=== PATIENT | male | born 1940 | race African-American/Black ===

== ENCOUNTER 2019-03-10 14:19 | Outpatient (CLI) | payer MEDICARE ==
[~2019-03-10] VITALS: Ht 172.7 cm; Wt 67.3 kg
[2019-03-10 15:43] VITALS: Ht 172.7 cm; Wt 67.3 kg
--- NOTE | 2019-03-10 18:30 | NUR ---
1600 PTS TEMP [address] ALBERT CALL AND ORDERS GIVEN FOR TYLENOL 650MG PO AND BENADRYL 25MG PO 1630 RETIREMENT CALLED FOR REPORT. NO HISTORY OF A TEMP 1800 2ND UNIT OF PRBC STARTED. IV WITHOUT SWELLING OR REDDNESS. LOW GRADE TEMP. PTS DIAPER CHANGED SOAKED WITH URIN. PT COOPERATIVE BUT CONFUSED AT TIMES. PT ON ADMIT HAS SORENESS TO RIGHT ARM HE STATED WAS ARTHRITIS. 1830 RETIREMENT CALLED AND REPORT GIVEN TO NURSE RIVERA. STATED HE USED TO HAVE A CATHETER AND WENT OUT ON A DAY PASS AND CAME BACK WITHOUT ONE.
--- NOTE | 2019-03-10 19:50 | NUR ---
1929 [facility] CALLED TO SENIOR EDUCATION SPECIALIST PT AND TRANSPORT BACK TO FACILITY.
== END 2019-03-10 20:12 | disposition home health service, planned readmission (86) ==
LOC: D.OPS 14:19
PROVIDERS: ATTEND Family Medicine
DX: D64.9 Anemia, unspecified (principal)